=== PATIENT | female | born 1990 | race Caucasian/White ===

== ENCOUNTER 2017-03-21 19:47 | Emergency (ER) | payer MEDICAID ==
[~2017-03-21] VITALS: Ht 154.9 cm; Wt 57.9 kg
[2017-03-21 20:03] VITALS: BP 106/59
[2017-03-21] MEDS ORDERED: METHOCARBAMOL 750 MG TABLET ONE (20:39)
[2017-03-21] MEDS ORDERED: METHOCARBAMOL 750 MG TABLET PO ONE (21:00)
== END 2017-03-21 22:12 | disposition home or self-care (01) ==
LOC: ED 22:04
DX: S16.1XXA Strain of muscle, fascia and tendon at neck level, initial encounter (principal); V43.52XA Car driver injured in collision with other type car in traffic accident, initial encounter; Y93.89 Activity, other specified; Y92.89 Other specified places as the place of occurrence of the external cause; Y99.8 Other external cause status
CPT/HCPCS: 72125; 99284

== ENCOUNTER 2020-09-09 09:06 | Emergency (ER) | payer MEDICAID ==
[~2020-09-09] VITALS: Ht 154.9 cm; Wt 58.1 kg
[2020-09-09 09:43] VITALS: BP 115/52
--- NOTE | 2020-09-09 09:48 | NUR ---
PATIENT IS A 30F COMPLAINING OF ABDOMINAL PAIN, CRAMPING AND VAGINAL BLEEDING AFTER POSITIVE PREG TEST YESTERDAY. SHE STATES THERE IS A MODERATE AMOUNT OF BLOOD AND SMALL CLOTS. PAIN WAS 8/10 WHEN SHE WOKE UP. AFTER 600MG IBUPROFIN AT HOME SHE IS DOWN TO A 3/10. CYCLING VITALS AND CONTINUOUS SPO2. CALL LIGHT WITHIN REACH. LAB AT BEDSIDE FOR DRAW.
[2020-09-09 09:53] LABS: BASOPHILS % (AUTO) 1 % (0-1); EOSINOPHILS % (AUTO) 1 % (1-7); LYMPHOCYTES % (AUTO) 19 % (22-44); MD NO; MEAN CORPUSCULAR HGB CONC 33.7 g/dL (32.4-35.8); MEAN PLATELET VOLUME 8.1 fL (7.4-10.4); MONOCYTES % (AUTO) 6 % (2-9); NEUTROPHILS % (AUTO) 74 % (42-75); PLATELET COUNT 266 x10^3/uL (130-400); RED BLOOD COUNT 4.72 x10^6/uL (3.82-5.3); RED CELL DISTRIBUTION WIDTH 13.3 % (9.6-15.2)
[2020-09-09 10:03] LABS: ALBUMIN 3.8 g/dL (3.4-5.0); ANION GAP 4 mmol/L (5-15); CALCIUM 8.9 mg/dL (8.5-10.1); CHLORIDE 111 mmol/L (98-107); CREATININE 0.75 mg/dL (0.55-1.02)
== END 2020-09-09 11:44 | disposition home or self-care (01) ==
LOC: ED 09:46
DX: O03.9 Complete or unspecified spontaneous abortion without complication (principal); R10.2 Pelvic and perineal pain; F17.200 Nicotine dependence, unspecified, uncomplicated
CPT/HCPCS: 36415; 76801; 80048; 82040; 84702; 85025; 86901; 99284

== ENCOUNTER 2020-09-11 09:53 | Emergency (ER) | payer MEDICAID ==
[~2020-09-11] VITALS: Ht 154.9 cm; Wt 58.0 kg
[2020-09-11 10:03] VITALS: BP 116/52
--- NOTE | 2020-09-11 10:25 | NUR ---
pt is resting comfortably on an er gurney. she is aware of the plan of care, and agreeable. no needs at this time, as we await lab for blood sampling.
== END 2020-09-11 11:42 | disposition home or self-care (01) ==
LOC: ED 11:35
DX: O03.9 Complete or unspecified spontaneous abortion without complication (principal)
CPT/HCPCS: 36415; 84702; 99283